=== PATIENT | female | born 1965 ===

== ENCOUNTER 2019-12-29 09:00 | Inpatient (IN) | payer OTHER ==
[~2019-12-29] VITALS: Ht 152.4 cm; Wt 45.4 kg
[2019-12-29] MEDS ORDERED: BONIVA150 MG PO (17:27)
[2019-12-29] MEDS ORDERED: MULTIVITAMINS1 EAC9 PO (17:28)
[2019-12-29] MEDS ORDERED: VITAMIN C500 M6 PO (17:29)
[2019-12-29] MEDS ORDERED: VITAMIN E400 UNIT PO (17:29)
[2019-12-29] MEDS ORDERED: OMEGA-31000 MG PO (17:29)
== END 2020-01-06 16:42 | disposition home or self-care (01) | DRG 331 ==
LOC: SURG 01-03 05:25 → O/R 01-03 05:25 → SURH 01-03 09:00 → O/R 01-03 09:00 → SURH 01-03 11:00 → SURG 01-03 11:05
PROVIDERS: ADMIT Colon & Rectal Surgery; ATTEND Colon & Rectal Surgery
PROC: 0DJD8ZZ Inspection of Lower Intestinal Tract, Via Natural or Artificial Opening Endoscopic (ICD-10-PCS; 2020-01-03)
PROC: 4A033R1 Measurement of Arterial Saturation, Peripheral, Percutaneous Approach (ICD-10-PCS; 2020-01-03)
PROC: 0DTN4ZZ Resection of Sigmoid Colon, Percutaneous Endoscopic Approach (ICD-10-PCS; principal; 2020-01-03 11:00)
DX: K57.32 Diverticulitis of large intestine without perforation or abscess without bleeding (principal); G47.33 Obstructive sleep apnea (adult) (pediatric)